=== PATIENT | male | born 1980 | race Two or more races ===

== ENCOUNTER 2022-05-01 20:28 | Inpatient (IN) | payer OTHER, SELFPAY ==
[2022-05-01 20:34] VITALS: BMI 23.1
--- NOTE | 2022-05-01 22:42 | PC.ADMIT ---
PT is a 41 year old tuvaluan speaking male that arrived on this unit from [facility] [place] at 21:00 via stretcher from [facility]. PT signed conditional voluntary paperwork but shortly thereafter put in a 3 day notice. PT was admitted to [facility] after a suicide attempt on 04/28/22 by ingesting multiple ambien and lisinopril and an unknown amount of alcohol. PT was medically hospitalized and required mechanical ventilation and recovered without incident. PT contributes suicide attempt to recent financial and marital stress and is expressing regret upon admission. PT is COVID negative,UTOX ([facility] [place]) + for cocaine. PT oriented to unit, all legals signed, unable to complete entirety of admission due to mental status upon arrival. Treatment plan complete, safety tool needs to be completed.
[2022-05-01 22:52] VITALS: BP 136/78; PULSE 78; RESP 14; TEMP 36.9
[2022-05-02] MEDS: Acetaminophen 325 MG TABLET 650 MG PO ×2 (06:12→21:05)
[2022-05-02 06:40] VITALS: BP 148/95; PULSE 83; RESP 18; TEMP 37.2; O2SAT 94
[2022-05-02 09:15] LABS: Estimated Average Glucose 105 mg/dL; Hemoglobin A1c % 5.3 %
--- NOTE | 2022-05-02 09:40 | HO.PSYADMNOT ---
HPI Date of Service: 05/02/22 Chief Complaint: MDD, Alcohol use, stimulant use disorder Sources of Information: patient interviewed, chart reviewed and crisis/core team assessment reviewed HPI Subjective Notes: Eller Warning, Conditional Voluntary and 3 Day Narrative: Patient is a 41-year-old male with hx of depression, ADHD, alcohol abuse, opioid use disorder in sustained remission on Suboxone presents following suicide attempt, briefly admitted to ICU, in face of argument with his estranged spouse. Patient medically stabilized at [facility] for 3 days and then transferred to [facility]. Patient reports that he has been depressed a little more but has not been suicidal and has never attempted suicide in the past. He says that this incident was completely impulsive, that he was in an argument with his , hurtful things were said and he was intoxicated; he made a comment about how would she feel if he wasn't there anymore...that it's her fault and in an impulsive angry moment he took the overdose. Patient says that once at [facility], he did not have any suicidality at all and has not had any since. He says i know what I did was foolish. . . He is glad he is alive And denies any SI, intent or plans. Patient said that this emotional moment has fully resolved and that he is stable and fine to go home. He says he was actually surprised that was being transferred to the psychiatric unit as no one told him about a prior and the only time he learned of it was when he was picked up for transport. Patient says that he has support and in addition to his therapist whom he sees once a week he is close with his mother, who mother lives nearby, is very supportive and is coming to live with him for the next week or two. Social work spoke with his mother and confirmed this. Patient agrees that he might perhaps benefit from an antidepressant but wants to work this out with his outpatient provider whom he has an appointment with next week. Patient asks for discharge tomorrow. He says that he has been stable without any SI for several days while at [facility], will be staying with his mother and very much needs to get back to work. 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 Patient denies any history of manic type episodes or behaviors; patient has a history of past trauma but denies any PTSD symptoms. He says he drinks alcohol but only twice a week; he agrees that it was contributory and that he needs to cut down but also explains that on these 2 occasions per week he never leaves the house when doing so and stays out of trouble. Patient's corroborated that this act was impulsive and much to her surprise. Past Psychiatric History: Last psychiatric admission in 2006 Has therapist through [facility] Medical Evaluation Reviewed: Hospitalist Shirin Pending [facility] Medical History (Updated 05/02/22 @ 17:20 by Harpreet Sandoval MD) Adjustment disorder with mixed disturbance of emotions and conduct MDD (major depressive disorder), recurrent episode, mild Family History: Unclear Social History: Some time in foster home; his mother took over care for after about 7 years old and he and his mother have a close supportive relationship Patient with children; he and his 1st ranged which is troublesome for him; patient is involved with kids Substance History: Binge drinks alcohol twice a week; rarely does cocaine Trauma History: History of trauma Diagnostics Vital Signs (24Hr): Vital Signs - 24 hr 05/01/22 22:52 05/02/22 06:40 Temperature 98.4 F 99 F Pulse Rate 78 83 Respiratory Rate 14 18 Blood Pressure 136/78 148/95 H Pulse Oximetry 94 Oxygen Delivery Method Room Air BMI result Body Mass Index 23.1 Labs Results: 05/02/22 08:26 Labs: Laboratory Results - last 48 hr 05/02/22 08:26 Estimat Average Glucose 105 Hemoglobin A1c % 5.3 Meds/Allergies Meds Home Medications Medication Instructions Recorded Confirmed Type albuterol sulfate 1 vial inhalation Q6H PRN wheezing 05/01/22 05/01/22 History amlodipine See Rx Instructions .Route .COMPLEX 05/01/22 05/01/22 History buprenorphine 2 mg-naloxone 0.5 mg 1 strip PO DAILY 05/01/22 05/01/22 History sublingual film (Suboxone) buprenorphine 8 mg-naloxone 2 mg 2 strip sublingual DAILY 05/01/22 05/01/22 History sublingual film (Suboxone) clotrimazole 1 % topical cream appl topical BID 05/01/22 History dextroamphetamine-amphetamine ER 1 cap PO QAM 05/01/22 05/01/22 History 30 mg 24hr capsule,extend release (Adderall XR) folic acid 1 05/01/22 History hydroxyzine HCl 25 mg tablet 1 - 2 tab PO DAILY PRN anxiety 05/01/22 05/01/22 History pantoprazole 40 mg tablet,delayed 1 tab PO DAILY 05/01/22 05/01/22 History release thiamine HCl (vitamin B1) 100 mg 100 mg PO DAILY 05/01/22 05/01/22 History tablet Allergies Allergies Allergy/AdvReac Type Severity Reaction Status Date / Time bee pollen [bee stings] Allergy Anaphylaxis Verified 05/01/22 20:36 Mental Status Exam Mental Status Exam Narrative: Pt is alert and oriented; behavior is cooperative, friendly and calm; patient is not in distress; dressed in casual attire with scruffy facial hair but adequate hygiene, limping from recent fall; mood is described as good and affect congruent, calm; eye contact appropriate; Speech is normal rate, volume and prosody and not pressured; no psychomotor agitation/retardation present; thought process is organized and goal directed; Thought content is on tx; otherwise pertinent to relevant topics and without any delusional content, paranoid ideations or grandiosity; denies any SI/HI. There is no evidence of perceptual disturbance. Patients insight and judgment appear intact. Assessment & Plan Assessment & Plan (1) Adjustment disorder with mixed disturbance of emotions and conduct: Status: Acute Code(s): F43.25 - Adjustment disorder with mixed disturbance of emotions and conduct (2) MDD (major depressive disorder), recurrent episode, mild: Status: Acute Code(s): F33.0 - Major depressive disorder, recurrent, mild Plan Patient is a 41-year-old male with hx of depression, ADHD, alcohol abuse, opioid use disorder in sustained remission on Suboxone presents following suicide attempt, briefly admitted to ICU, in face of argument with his estranged spouse. Patient medically stabilized at [facility] for 3 days and then transferred to [facility] unit. Patient reports that he has been depressed a little more but has not been suicidal and has never attempted suicide in the past. He says that this incident was completely impulsive, that he was in an argument with his , hurtful things were said and he was intoxicated; he made a comment about how would she feel if he wasn't there anymore...that it's her fault and in an impulsive angry moment he took the overdose. Patient says that once at [facility], he did not have any suicidality at all and has not had any since. He says i know what I did was foolish. . . He is glad he is alive And denies any SI, intent or plans. Patient said that this emotional moment has fully resolved and that he is stable and fine to go home. He says he was actually surprised that was being transferred to the psychiatric unit as no one told him about a prior and the only time he learned of it was when he was picked up for transport. Patient says that he has support and in addition to his therapist whom he sees once a week he is close with his mother, who mother lives nearby, is very supportive and is coming to live with him for the next week or two. Social work spoke with his mother and confirmed this. Patient agrees that he might perhaps benefit from an antidepressant but wants to work this out with his outpatient provider whom he has an appointment with next week. Patient asks for discharge tomorrow. He says that he has been stable without any SI for several days while at [facility], will be staying with his mother and very much needs to get back to work. 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 Patient denies any history of manic type episodes or behaviors; patient has a history of past trauma but denies any PTSD symptoms. He says he drinks alcohol but only twice a week; he agrees that it was contributory and that he needs to cut down but also explains that on these 2 occasions per week he never leaves the house when doing so and stays out of trouble. Patient's corroborated that this act was impulsive and much to her surprise. Harness Rigger and social work professor Jessica discussed case at length. Currently both typewriter mechanic and social work professor agree that patient is not in imminent risk for harm to self or others. While his attempt was serious, it was impulsive and he has no other history of attempts. Patient has been at [facility] for several days during which time he said that SI has remained fully resolved. He admits to being sad that he is are estranged but that he knows this was an [id number] behavior and he is confident will never repeated. Patient is future oriented and he especially wants discharge because he needs to work in order to make a rent. He says that if he loses apartment he feels it will be a tremendous setback for which both typewriter mechanic and social work professor agree. Furthermore patient's mother with whom social Work spoke to, will be staying with him for the next week or 2; the to have a close, stable in supportive relationship. Patient said that with his mother there there is no chance he will be drinking at all which she also said would be the case. Patient agreed that he might benefit from an antidepressant as long as it would not cloud his thinking, but wanted to discuss this with outpatient provider. Patient has had several days since this incident giving patient time to stabilize; as he does not currently want to get on medication right now and has support in the community, there is seems to be little benefit to having patient's stay on the unit against his will. Patient is future oriented; he maintains his own apartment and consistently pursues employment and typewriter mechanic agrees that losing his apartment would be a tremendous blow. Patient has signed a 3 day notice and Harness Rigger does not find that patient meets the criteria for involuntary commitment. Patient's request for discharge will be honored. Patient educated on: diagnosis, medication risk/benefits, substance abuse and therapeutic strategies Informed Consent: understands Reason for continued inpatient stay Substantial Risk for: stable for discharge
[2022-05-02 09:46] LABS: Alanine Aminotransferase 13 U/L (0-40); Albumin Level 4.1 g/dL (3.5-5.0); Alkaline Phosphatase 91 U/L (39-117); Anion Gap 14 (12-20); Aspartate Amino Transferase 14 U/L (5-37); Bilirubin Total 0.7 mg/dL (0.0-1.0); Blood Urea Nitrogen 11 mg/dL (9-16); Calcium 9.3 mg/dL (8.4-10.2); Carbon Dioxide 26 mmol/L (22-29); Chloride 99 mmol/L (96-108); Cholesterol 124 mg/dL; Creatinine Clr Calc Pharmacy 112.3; Estimated Glomerular Filt Rate > 60; Glucose Fasting 91 mg/dL (60-99); HDL Cholesterol 60 mg/dL; LDL Cholesterol Calculated 55 mg/dl; Magnesium 2.4 mg/dL (1.6-2.6); Potassium 4.5 mmol/L (3.3-5.1); Sodium 134 mmol/L (135-145); Total Protein 6.9 g/dL (6.5-8.0); Triglycerides 48 mg/dL
[2022-05-02 10:09] LABS: Thyroid Stimulating Hormone 1.56 uIU/mL (0.32-4.0)
[2022-05-02 10:22] LABS: Folate 3.1 ng/mL (> or = 4.0); Vitamin B12 318 pg/mL (200-900)
[2022-05-02] MEDS: Nicotine 21 MG PATCH.TD24 TRANSDERMA (10:48)
[2022-05-02] MEDS: hydrOXYzine HCL 25 MG TABLET PO (11:10)
[2022-05-02] MEDS: Buprenorphine/Naloxone 8/2 mg FILM 1 FILM SUBLINGUAL ×2 (11:30→15:53)
[2022-05-02] MEDS: Nicotine Polacrilex Lozenge 4 MG LOZENGE BUCCAL ×5 (13:05→23:33)
[2022-05-02] MEDS: Buprenorphine/Naloxone 2/0.5mg FILM 1 FILM SUBLINGUAL (14:14)
[2022-05-02 19:05] VITALS: BP 138/90; PULSE 104; TEMP 37.1
[2022-05-03] MEDS: hydrOXYzine HCL 25 MG TABLET PO (00:14)
[2022-05-03] MEDS: traZODone HCL 50 MG TABLET PO (00:14)
[2022-05-03] MEDS: Acetaminophen 325 MG TABLET 650 MG PO (03:19)
[2022-05-03 06:00] VITALS: BP 130/85; PULSE 107; RESP 16; TEMP 36.2; O2SAT 95
[2022-05-03] MEDS: Nicotine Polacrilex Lozenge 4 MG LOZENGE BUCCAL (08:45)
[2022-05-03] MEDS: Nicotine 21 MG PATCH.TD24 TRANSDERMA (08:46)
[2022-05-03] MEDS: Buprenorphine/Naloxone 8/2 mg FILM 1 FILM SUBLINGUAL (08:46)
[2022-05-03] MEDS: Buprenorphine/Naloxone 2/0.5mg FILM 1 FILM SUBLINGUAL (08:46)
--- NOTE | 2022-05-03 09:06 | PM.PSYDC ---
DS: Providers Provider Date of Service: 05/03/22 Date of admission: 05/01/22 20:28 Date of discharge: 05/03/22 Primary care physician: Unknown Physician Attending physician on admission: Harpreet Sandoval Consults: 05/01/22 20:48 Consult to Hospitalist Routine Consulting Provider: Hospitalist Reason For Exam: new admit from [facility] Attending physician on discharge: Harpreet Sandoval DS: Diagnosis Discharge Diagnosis (1) Adjustment disorder with mixed disturbance of emotions and conduct: Status: Acute (2) MDD (major depressive disorder), recurrent episode, mild: Status: Acute DS: Medications Discharge Medications Home Medications: Home Medications Medication Instructions Recorded Confirmed albuterol sulfate 1 vial inhalation Q6H PRN wheezing 05/01/22 05/01/22 amlodipine See Rx Instructions .Route .COMPLEX 05/01/22 05/01/22 buprenorphine 2 mg-naloxone 0.5 mg 1 strip PO DAILY 05/01/22 05/01/22 sublingual film (Suboxone) buprenorphine 8 mg-naloxone 2 mg 2 strip sublingual DAILY 05/01/22 05/01/22 sublingual film (Suboxone) clotrimazole 1 % topical cream appl topical BID 05/01/22 dextroamphetamine-amphetamine ER 1 cap PO QAM 05/01/22 05/01/22 30 mg 24hr capsule,extend release (Adderall XR) folic acid 1 05/01/22 hydroxyzine HCl 25 mg tablet 1 - 2 tab PO DAILY PRN anxiety 05/01/22 05/01/22 pantoprazole 40 mg tablet,delayed 1 tab PO DAILY 05/01/22 05/01/22 release thiamine HCl (vitamin B1) 100 mg 100 mg PO DAILY 05/01/22 05/01/22 tablet Mental Status Exam Mental Status Exam Narrative: Pt is alert and oriented; behavior is cooperative, friendly and calm; patient is not in distress; dressed in casual attire with scruffy facial hair but adequate hygiene, minor limp; mood is described as good and affect congruent, calm; eye contact appropriate; Speech is normal rate, volume and prosody and not pressured; no psychomotor agitation/retardation present; thought process is organized and goal directed; Thought content is on tx; otherwise pertinent to relevant topics and without any delusional content, paranoid ideations or grandiosity; denies any SI/HI. There is no evidence of perceptual disturbance. Patients insight and judgment appear intact. Data Data Completed and Pending Completed studies during hospitalization [Text1]: 05/02/22 05/02/22 05/02/22 08:26 08:26 08:26 Sodium 134 L Potassium 4.5 Chloride 99 Carbon Dioxide 26 Anion Gap 14 BUN 11 Creatinine 0.94 Estim Creat Clear Calc 112.3 Estimated GFR > 60 Fasting Glucose 91 Estimat Average Glucose 105 Hemoglobin A1c % 5.3 Calcium 9.3 Magnesium 2.4 Total Bilirubin 0.7 AST 14 ALT 13 Alkaline Phosphatase 91 Total Protein 6.9 Albumin 4.1 Triglycerides 48 Cholesterol 124 LDL Cholesterol, Calc 55 HDL Cholesterol 60 Vitamin B12 318 Folate 3.1 L TSH 1.56 Free T4 1.00 DS: Summary Hospital Course Hospital Course: Patient is a 41-year-old male with hx of depression, ADHD, alcohol abuse, opioid use disorder in sustained remission on Suboxone? presents following suicide attempt, briefly admitted to ICU, in face of argument with his estranged spouse. Patient medically stabilized at [facility] for 3 days and then transferred to [facility].? Patient reports that he has been depressed a little more but has not been suicidal and has never attempted suicide in the past.? He says that this incident was completely impulsive, that he was in an argument with his , hurtful things were said and he was intoxicated; he made a comment about how would she feel if he wasn't there anymore...that it's her fault and in an impulsive angry moment he took the overdose.? Patient says that once at [facility], he did not have any suicidality at all and has not had any since.? He says i know what I did was foolish. . . He is glad he is alive And denies any SI, intent or plans.? Patient said that this emotional moment has fully resolved and that he is stable and fine to go home.? He says he was actually surprised that was being transferred to the psychiatric unit as no one told him about a prior and the only time he learned of it was when he was picked up for transport.? Patient says that he has support and in addition to his therapist whom he sees once a week he is close with his mother, who mother lives nearby, is very supportive and is coming to live with him for the next week or two.? Social work spoke with his mother and confirmed this.? Patient agrees that he might perhaps benefit from an antidepressant but wants to work this out with his outpatient provider whom he has an appointment with next week.? Patient asks for discharge tomorrow.? He says that he has been stable without any SI for several days while at [facility], will be staying with his mother and very much needs to get back to work.? 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 Patient denies any history of manic type episodes or behaviors; patient has a history of past trauma but denies any PTSD symptoms.? He says he drinks alcohol but only twice a week; he agrees that it was contributory and that he needs to cut down but also explains that on these 2 occasions per week he never leaves the house when doing so and stays out of trouble.? Patient's corroborated that this act was impulsive and much to her surprise. Quality Process Auditor and social media sr strategy manager Jessica discussed case at length.? Currently both race and sports book writer and social media sr strategy manager agree that patient is not in imminent risk for harm to self or others.? While his attempt was serious, it was impulsive and he has no other history of attempts.? Patient has been at [facility] for several days during which time he said that SI has remained fully resolved.? He admits to being sad that he is are estranged but that he knows this was an [id number] behavior and he is confident will never repeated.? Patient is future oriented and he especially wants discharge because he needs to work in order to make a rent.? He says that if he loses apartment he feels it will be a tremendous setback for which both race and sports book writer and social media sr strategy manager agree.? Furthermore patient's mother with whom social Work spoke to, will be staying with him for the next week or 2; the to have a close, stable in supportive relationship.? Patient said that with his mother there there is no chance he will be drinking at all which she also said would be the case.? Patient agreed that he might benefit from an antidepressant as long as it would not cloud his thinking, but wanted to discuss this with outpatient provider.? Patient has had several days since this incident giving patient time to stabilize; as he does not currently want to get on medication right now and has support in the community, there is seems to be little benefit to having patient's stay on the unit against his will.? Patient is future oriented; he maintains his own apartment and consistently pursues employment and race and sports book writer agrees that losing his apartment would be a tremendous blow.? Patient has signed a 3 day notice and Quality Process Auditor does not find that patient meets the criteria for involuntary commitment.? On day of discharge, race and sports book writer met with patient reported that he is overall in a good mood and looking forward to getting back to work and moving on. He is grateful that his mother will be picking him up today and grateful for discharge. He denies any SI and safety plan was discussed were patient agrees to immediately reach out to his mother or therapist or call 911 if he is feeling unsafe, though he does not believe that he will become suicidal again. Patient's request for discharge will be honored. Time spent discussing smoking cessation with patient: 3 to 10 minutes Status at Discharge Functional status at discharge: independent ambulation Overall status at discharge: patient is back to baseline Time Spent with Patient Time attestation: Total time spent providing and/or coordinating discharge services: Time spent: Less than 30 minutes Discharge Plan Discharge Patient Disposition: Home, Self-Care Discharge Diagnosis: Adjustment disorder with mixed disturbance of emotions and conduct, resolved Referrals: [facility] [Other] - 05/13/22 4:00 pm (Your next appointment with your therapist María Hannah at [facility] is for 05/13/22 at 4pm, telehealth. ) Dr Santo Aldrich [facility] [Other] - 06/12/22 9:00 am (This appointment is face to face and in office at [facility]. Your appointment is scheduled for 06/12/22 at 9AM. ) Bay Almeida MD [Physician] - 05/16/22 10:00 am (PATIENT WILL SEE DR. TONG) Discharge Medications: Continued dextroamphetamine-amphetamine [Adderall XR] 30 mg capsule,extended release 24hr 1 cap PO QAM hydroxyzine HCl 25 mg tablet 1 - 2 tab PO DAILY PRN (Reason: anxiety) buprenorphine-naloxone [Suboxone] 2-0.5 mg film 1 strip PO DAILY buprenorphine-naloxone [Suboxone] 8-2 mg film 2 strip sublingual DAILY amlodipine 5 mg tablet See Rx Instructions .ROUTE .COMPLEX Rx Instructions: 1 tablet daily folic acid 1 mg tablet 1 Rx Instructions: 1 tab daily thiamine HCl (vitamin B1) 100 mg Tablet 100 mg PO DAILY clotrimazole 1 % cream topical BID albuterol sulfate 2.5 mg /3 mL (0.083 %) solution for nebulization 1 vial inhalation Q6H PRN (Reason: wheezing) pantoprazole 40 mg tablet,delayed release (DR/EC) 1 tab PO DAILY Discharge Orders: Discharge Order (Routine); Ordered 05/03/22 Ordered By: Harpreet Sandoval Diet: regular diet Activity on Discharge: As tolerated Stand Alone Forms: Patient Portal Discharge page, Community Support Care Plan Goals: Maintain mood and safe behaviors Take medications as prescribed Continue to pursue sobriety Practice coping skills Continue with outpatient providers and reach out to them as needed Health Concerns: Mood stability and behaviors Sobriety Plan of Treatment: Follow up with your PCP, psychiatric provider and other outpatient providers regarding above concerns Take medications as prescribed Discuss Antidepressant with outpatient provider Assessment: Risk assessment at time of discharge:? Patient was interviewed prior to discharge and found to be fully oriented and without any SI or HI. Patient has insight and demonstrates good judgment in terms of wanting to pursue treatment. Patient is not in imminent risk of harm to self or others and has a safety plan that includes presenting to the closest ER or calling 911 if feeling unsafe.? Patient has been observed closely by nursing and unit staff throughout admission; patient has not engaged in any behaviors that suggest dangerousness to self or others and has demonstrated appropriate behaviors and impulse control Discharge Date/Time: 05/03/22 10:49
[2022-05-03] MEDS: Naloxone HCl Nasal TAKE HOME 4 MG SPRAY NOSTRILALT (09:50)
== END 2022-05-03 10:49 | disposition home or self-care (01) | DRG 755 ==
PROVIDERS: Registered Nurse; Admitting Provider Psychiatry & Neurology Psychiatry; Visit Provider Psychiatry & Neurology Psychiatry
DX: F43.25 Adjustment disorder with mixed disturbance of emotions and conduct (principal); F33.0 Major depressive disorder, recurrent, mild; F90.9 Attention-deficit hyperactivity disorder, unspecified type; F17.210 Nicotine dependence, cigarettes, uncomplicated; Z71.6 Tobacco abuse counseling; Z79.899 Other long term (current) drug therapy
CPT/HCPCS: 36415; 80053; 80061; 82607; 82746; 83036; 83735; 84439; 84443